=== PATIENT | male | born 1945 | race Caucasian/White ===

== ENCOUNTER 2017-07-11 15:46 | Emergency (ER) | payer OTHER ==
[~2017-07-11] VITALS: Ht 175.2 cm; Wt 63.5 kg
[~2017-07-11 15:46] MED LIST: CINNAMON OIL 1 M1 ML PO; CLINDAMYCIN PO; GINGER500 MG PO; GLUCOSE4 GM PO; METFORMIN1000 MG PO; NEURONTIN300 MG PO; NOVOLOG FLEX100 U/ML SC; OXYGEN NAS; [UNRECOGNIZED DRUG - OTHER] MC
[2017-07-11 16:08] LABS: HEMATOCRIT 29.5 % (42.0-52.0); HEMOGLOBIN 7.9 g/dl (14.0-18.0); MEAN CELL VOLUME 71.8 fl (80.0-94.0); MEAN CORPUSCULAR HGB 19.2 pg (27.0-31.0); MEAN CORPUSCULAR HGB CONC 26.8 g/dl (33.0-37.0); MEAN PLATELET VOLUME 9.6 fl (9.6-12.3); NUCLEATED RED BLOOD CELL 0.1 10*3/uL (0.0-0.0); NUCLEATED RED BLOOD CELL 0.3 % (0.0-0.0); PLATELET COUNT AUTOMATED 496 10*3/uL (130-400); RED BLOOD COUNT 4.11 10*6/uL (4.50-5.90); RED CELL DISTRI WIDTH 22.2 % (0-14.5); WHITE BLOOD COUNT 21.4 10*3/uL (4.8-10.8)
[2017-07-11 16:17] LABS: ACT PARTIAL THROMBO TIME 26.3 SECONDS (20.8-31.5); INTERNATIONAL NORM RATIO 1.3 (2.0-3.5)
[2017-07-11 16:26] LABS: ALBUMIN 2.1 gm/dl (3.1-4.5); BUN 24 mg/dl (7-24); CHLORIDE 109 mmol/L (98-107); CREATININE 0.63 mg/dL (0.70-1.30); LIPASE 35 U/L (73-393); MAGNESIUM 2.2 mg/dL (1.5-2.1); SGOT/AST 40 IU/L (3-35); SGPT/ALT 23 U/L (12-78); SODIUM 142 mmol/L (136-145)
[2017-07-11 16:27] LABS: ALKALINE PHOSPHATASE 116 U/L (45-117); CPK 929 U/L (39-308); TOTAL PROTEIN 6.5 gm/dL (6.4-8.2)
[2017-07-11 16:28] LABS: TOTAL CELLS COUNTED 100 #CELLS
[2017-07-11 16:29] LABS: PLATELET SUFFICIENCY HIGH (NORMAL); POLYCHROMASIA SLIGHT
[2017-07-11 16:30] LABS: ROULEAUX SLIGHT; TARGET CELLS FEW
[2017-07-11 16:31] LABS: BURR CELLS FEW; MICROCYTOSIS SLIGHT; OVALOCYTES FEW; SCHISTOCYTES FEW
[2017-07-11 16:36] LABS: CKMB 11.1 ng/ml (0.5-3.6); TROPONIN I 0.498 ng/ml (<0.045)
== END 2017-07-12 03:01 | disposition short-term general hospital (02) ==
LOC: ED 15:46
PROVIDERS: Emergency Medicine
DX: I63.9 Cerebral infarction, unspecified (principal); E11.9 Type 2 diabetes mellitus without complications; Z79.899 Other long term (current) drug therapy